=== PATIENT | female | born 1980 | race African-American/Black ===

== ENCOUNTER 2021-02-15 11:21 | Inpatient (IN) | payer BC, OTHER ==
[~2021-02-15] VITALS: Ht 152.4 cm; Wt 73.0 kg
[~2021-02-15 11:21] MED LIST: ATEN50TA PO; BENA20TA10 PO; LISI10TA26 PO
[2021-02-15] MEDS ORDERED: ONDANSETRON HCL 4MG/2ML INJ IV STA (11:52)
[2021-02-15] MEDS ORDERED: SODIUM CHLORIDE 0.9% 1,000 ML IV ONE (12:00)
[2021-02-15 12:16] LABS: BASOPHILS % 0.3 % (0.0-2.0); HEMOGLOBIN. 12.4 g/dL (12.0-16.0); LYMPHOCYTES % 10.5 % (20.0-50.0); MEAN CORPUSCULAR HEMOGLOBIN 30.9 pg (28.0-32.0); MEAN CORPUSCULAR VOLUME 90.1 fL (81.0-99.0); MEAN PLATELET VOLUME 8.8 fl (7.4-10.4); MONOCYTES % 5.7 % (2.0-8.0); NEUTROPHILS % 83.5 % (40.0-76.0); PLATELET 207 x1000/uL (130-400); RED CELL DISTRIBUTION WIDTH 12.5 % (11.6-14.6)
[2021-02-15 12:23] LABS: CHLORIDE 89 mEq/L (98-107)
[2021-02-15 12:26] LABS: PROTHROMBIN TIME 10.9 sec (9.6-11.0)
[2021-02-15 12:32] LABS: HCG SCREEN NEGATIVE
[2021-02-15 12:56] LABS: CLARITY URINE CLEAR (CLEAR); COLOR URINE YELLOW (YELLOW); KETONES URINE TRACE (NEGATIVE); LEUKOCYTE ESTERASE URINE NEGATIVE (NEGATIVE); NITRITE URINE NEGATIVE (NEGATIVE); OCCULT BLOOD URINE NEGATIVE (NEGATIVE); PROTEIN URINE 1+ (NEGATIVE); SPECIFIC GRAVITY URINE 1.013 (1.005-1.030); UROBILINOGEN URINE 0.2 E.U./dL (0.2-1.0)
[2021-02-15] MEDS ORDERED: POTASSIUM CHLORIDE 20MEQ TABLET SR PO ONE (13:00)
[2021-02-15] MEDS ORDERED: KCL 10MEQ/50ML PREMIX 50 ML IV ONE (13:00)
[2021-02-15] MEDS ORDERED: NA PHOS,M-B/NA PHOS,DI-BA ENEMA 118ML PR PRN (17:15)
[2021-02-15] MEDS ORDERED: GUAIFENESIN 200MG/10ML SUGAR FREE UDC PO PRN (17:15)
[2021-02-15] MEDS ORDERED: DIPHENHYDRAMINE 50MG/ML VIAL IV PRN (17:15)
[2021-02-15] MEDS ORDERED: LORAZEPAM 0.5MG TABLET PO PRN (17:15)
[2021-02-15] MEDS ORDERED: DOCUSATE SODIUM 100MG CAPSULE PO PRN (17:15)
[2021-02-15] MEDS ORDERED: MAGNESIUM/ALUMINUM HYDROXIDE/SIMETHICONE 30ML UDC PO PRN (17:15)
[2021-02-15] MEDS ORDERED: CEFTRIAXONE 1 G PREMIX 50 ML IV SCH (17:30)
[2021-02-15] MEDS: ACETAMINOPHEN 325MG TABLET PO PRN (17:53)
[2021-02-15] MEDS: DEXAMETHASONE 4MG TABLET PO SCH (17:53)
[2021-02-15 18:00] LABS: BG BASE EXCESS 4.5 mmol/L (-2.0-2.0); BG CARBOXYHEMOGLOBIN 0.4 % (0.5-1.5); BG DEOXYHEMOGLOBIN 5.3 % (0.0-5.0); BG FRACTION INSPIRED OXYGEN 21; BG HCO3 ACT 27.7 mmol/L (22.0-26.0); BG METHEMOGLOBIN 0.2 % (0.0-1.5); BG OXYGEN SATURATION 94.7 % (92.0-98.5); BG OXYHEMOGLOBIN 94.1 % (94.0-97.0); BG PCO2 36.3 mmHg (35.0-45.0); BG PO2 69.6 mmHg (75.0-100.0); BG SAMPLE SITE LEFT RADIAL; BG TOTAL HEMOGLOBIN 12.6 g/dL (12.0-18.0); BG VENT MODE ROOM AIR
[2021-02-15] MEDS ORDERED: AZITHROMYCIN 500 MG in DEXT 5% WATER 250 ML IV SCH (18:00)
[2021-02-15] MEDS ORDERED: ALBUTEROL 6.7GM HFA INHALER ORI SCH (18:00)
[2021-02-15 19:03] VITALS: BP 123/74
[2021-02-15 20:00] VITALS: BP 139/89
[2021-02-15] MEDS ORDERED: FAMOTIDINE 20MG TABLET PO SCH (21:00)
[2021-02-15] MEDS: ENOXAPARIN 40MG/0.4ML SYR SUBCUT SCH (21:05)
[2021-02-15] MEDS: FAMOTIDINE 20MG TABLET PO SCH (21:05)
[2021-02-15] MEDS: SODIUM CHLORIDE 0.9% 1,000 ML IV SCH (21:06)
[2021-02-16 00:05] VITALS: BP 121/79
[2021-02-16 04:07] VITALS: BP 139/68
[2021-02-16] MEDS: SODIUM CHLORIDE 0.9% 1,000 ML IV SCH ×2 (06:24→21:27)
[2021-02-16 07:24] LABS: CHLORIDE 97 mEq/L (98-107)
[2021-02-16 07:28] LABS: BASOPHILS % 0.5 % (0.0-2.0); HEMATOCRIT. 33.6 % (36.0-48.0); HEMOGLOBIN. 11.5 g/dL (12.0-16.0); LYMPHOCYTES % 23.9 % (20.0-50.0); MEAN CORPUSCULAR HEMOGLOBIN 31.1 pg (28.0-32.0); MEAN CORPUSCULAR VOLUME 90.9 fL (81.0-99.0); MEAN PLATELET VOLUME 9.7 fl (7.4-10.4); MONOCYTES % 7.2 % (2.0-8.0); NEUTROPHILS % 68.4 % (40.0-76.0); PLATELET 190 x1000/uL (130-400); RED CELL DISTRIBUTION WIDTH 12.6 % (11.6-14.6)
[2021-02-16 07:40] LABS: HDL CHOLESTEROL 34 mg/dL (40-59); LDL CHOLESTEROL 67 mg/dL (5-100)
[2021-02-16 07:47] LABS: *AMPHETAMINES SCREEN URINE NEGATIVE (NEGATIVE)
[2021-02-16 07:49] LABS: *BARBITURATES SCREEN URINE NEGATIVE (NEGATIVE); *BENZODIAZEPINES SCREEN URINE NEGATIVE (NEGATIVE); *COCAINE SCREEN URINE NEGATIVE (NEGATIVE); CANNABINOID URINE SCREEN NEGATIVE (NEGATIVE); METHADONE URINE SCREEN NEGATIVE (NEGATIVE); OPIATES URINE SCREEN NEGATIVE (NEGATIVE); PHENCYCLIDINE URINE SCREEN NEGATIVE (NEGATIVE)
[2021-02-16 08:00] VITALS: BP 139/82
[2021-02-16] MEDS: DEXAMETHASONE 4MG TABLET PO SCH (08:17)
[2021-02-16] MEDS: FAMOTIDINE 20MG TABLET PO SCH ×2 (08:17→21:26)
[2021-02-16 12:00] VITALS: BP 164/81
[2021-02-16] MEDS: CLONIDINE 0.1MG TABLET PO PRN (12:07)
[2021-02-16] MEDS: ACETAMINOPHEN 325MG TABLET PO PRN (12:07)
[2021-02-16] MEDS: METRONIDAZOLE 500MG TABLET PO SCH ×2 (13:25→21:26)
[2021-02-16 16:00] VITALS: BP 110/67
[2021-02-16] MEDS: AZITHROMYCIN 500 MG in DEXT 5% WATER 250 ML IV SCH (17:24)
[2021-02-16] MEDS: CEFTRIAXONE 1,000 MG in DEXTROSE 5% WATER 50 ML IV SCH (17:24)
[2021-02-16 20:00] VITALS: BP 129/80
[2021-02-16] MEDS: ENOXAPARIN 40MG/0.4ML SYR SUBCUT SCH (21:27)
[2021-02-17] VITALS: BP 133/85
[2021-02-17 04:00] VITALS: BP 123/68
[2021-02-17] MEDS: ACETAMINOPHEN 650MG/20.3ML UDC GT PRN (04:49)
[2021-02-17] MEDS: METRONIDAZOLE 500MG TABLET PO SCH ×3 (07:28→21:00)
[2021-02-17 07:49] LABS: CHLORIDE 99 mEq/L (98-107)
[2021-02-17 07:50] LABS: BASOPHILS % 0.2 % (0.0-2.0); HEMATOCRIT. 31.7 % (36.0-48.0); HEMOGLOBIN. 10.5 g/dL (12.0-16.0); LYMPHOCYTES % 19.1 % (20.0-50.0); MEAN CORPUSCULAR HEMOGLOBIN 30.2 pg (28.0-32.0); MEAN CORPUSCULAR VOLUME 90.9 fL (81.0-99.0); MEAN PLATELET VOLUME 9.6 fl (7.4-10.4); NEUTROPHILS % 76.7 % (40.0-76.0); PLATELET 189 x1000/uL (130-400); RED BLOOD CELL COUNT 3.49 mill/uL (4.2-5.4); RED CELL DISTRIBUTION WIDTH 12.3 % (11.6-14.6)
[2021-02-17 08:00] VITALS: BP 122/81
[2021-02-17] MEDS: FAMOTIDINE 20MG TABLET PO SCH ×2 (08:47→21:00)
[2021-02-17] MEDS: DEXAMETHASONE 4MG TABLET PO SCH (08:47)
[2021-02-17] MEDS: ACETAMINOPHEN 325MG TABLET PO PRN ×2 (08:47→20:59)
[2021-02-17] MEDS: SODIUM CHLORIDE 0.9% 1,000 ML IV SCH ×2 (10:53→23:39)
[2021-02-17] MEDS ORDERED: POTASSIUM CHLORIDE 20MEQ TABLET SR PO NR (11:00)
[2021-02-17] MEDS: ZINC SULFATE 220 MG ( 50 ) CAPSULE PO SCH (11:06)
[2021-02-17] MEDS: ENOXAPARIN 80MG/0.8ML SYR SUBCUT SCH ×2 (11:24→23:39)
[2021-02-17 12:00] VITALS: BP 140/87
[2021-02-17 16:00] VITALS: BP 145/91
[2021-02-17] MEDS: CEFTRIAXONE 1,000 MG in DEXTROSE 5% WATER 50 ML IV SCH (16:48)
[2021-02-17] MEDS: AZITHROMYCIN 500 MG in DEXT 5% WATER 250 ML IV SCH (17:36)
[2021-02-17 20:00] VITALS: BP 149/85
[2021-02-17] MEDS: ASCORBIC ACID 500 MG TABLET PO SCH (21:00)
[2021-02-18] VITALS (10 sets, daily range): BP systolic 127–181; BP diastolic 74–105
[2021-02-18] MEDS: ACETAMINOPHEN 325MG TABLET PO PRN ×3 (01:03→22:33)
[2021-02-18] MEDS: METRONIDAZOLE 500MG TABLET PO SCH ×3 (05:39→22:32)
[2021-02-18 06:36] LABS: BASOPHILS % 0.3 % (0.0-2.0); HEMATOCRIT. 32.8 % (36.0-48.0); HEMOGLOBIN. 10.9 g/dL (12.0-16.0); LYMPHOCYTES % 19.5 % (20.0-50.0); MEAN CORPUSCULAR HEMOGLOBIN 30.5 pg (28.0-32.0); MEAN CORPUSCULAR VOLUME 91.9 fL (81.0-99.0); MEAN PLATELET VOLUME 9.6 fl (7.4-10.4); MONOCYTES % 3.1 % (2.0-8.0); NEUTROPHILS % 77.1 % (40.0-76.0); PLATELET 217 x1000/uL (130-400); RED BLOOD CELL COUNT 3.57 mill/uL (4.2-5.4); RED CELL DISTRIBUTION WIDTH 12.6 % (11.6-14.6)
[2021-02-18 06:37] LABS: CHLORIDE 102 mEq/L (98-107)
[2021-02-18] MEDS: ZINC SULFATE 220 MG ( 50 ) CAPSULE PO SCH (08:50)
[2021-02-18] MEDS: FAMOTIDINE 20MG TABLET PO SCH ×2 (08:50→20:38)
[2021-02-18] MEDS: ASCORBIC ACID 500 MG TABLET PO SCH ×2 (08:50→20:38)
[2021-02-18] MEDS: DEXAMETHASONE 10 MG/ML VIAL IV SCH (08:50)
[2021-02-18] MEDS ORDERED: POTASSIUM CHLORIDE 20MEQ TABLET SR PO NR (10:45)
[2021-02-18] MEDS: ENOXAPARIN 80MG/0.8ML SYR SUBCUT SCH ×2 (12:11→22:32)
[2021-02-18] MEDS: AMLODIPINE 5MG TABLET PO SCH (12:27)
[2021-02-18 12:30] LABS: BG BASE EXCESS 2.3 mmol/L (-2.0-2.0); BG CARBOXYHEMOGLOBIN 0.4 % (0.5-1.5); BG DEOXYHEMOGLOBIN 7.7 % (0.0-5.0); BG FRACTION INSPIRED OXYGEN 32; BG HCO3 ACT 25.3 mmol/L (22.0-26.0); BG OXYGEN SATURATION 92.3 % (92.0-98.5); BG OXYHEMOGLOBIN 91.9 % (94.0-97.0); BG PCO2 33.6 mmHg (35.0-45.0); BG PH 7.494 (7.350-7.450); BG PO2 58.6 mmHg (75.0-100.0); BG SAMPLE SITE LEFT RADIAL; BG TOTAL HEMOGLOBIN 11.8 g/dL (12.0-18.0); BG VENT MODE NASAL CANNULA
[2021-02-18] MEDS: SODIUM CHLORIDE 0.9% 1,000 ML IV SCH (13:51)
[2021-02-18] MEDS ORDERED: IVERMECTIN 3 MG TABLET PO NR (15:45)
[2021-02-18] MEDS: CEFTRIAXONE 1,000 MG in DEXTROSE 5% WATER 50 ML IV SCH (16:18)
[2021-02-18] MEDS: AZITHROMYCIN 500 MG in DEXT 5% WATER 250 ML IV SCH (17:06)
[2021-02-18] MEDS: ALBUTEROL 6.7GM HFA INHALER ORI SCH (17:32)
[2021-02-18] MEDS: CLONIDINE 0.1MG TABLET PO PRN (22:46)
[2021-02-19] VITALS (18 sets, daily range): BP systolic 107–166; BP diastolic 20–95
[2021-02-19] MEDS: ALBUTEROL 6.7GM HFA INHALER ORI SCH ×5 (00:33→22:46)
[2021-02-19] MEDS: SODIUM CHLORIDE 0.9% 1,000 ML IV SCH ×2 (05:07→14:07)
[2021-02-19] MEDS: METRONIDAZOLE 500MG TABLET PO SCH ×3 (05:07→22:47)
[2021-02-19] MEDS: HYDROCODONE/ACETAMINOPHEN 5/325MG TABLET PO PRN ×2 (05:11→20:16)
[2021-02-19] MEDS: ONDANSETRON HCL 4MG/2ML INJ IV PRN ×2 (05:30→20:16)
[2021-02-19 05:38] LABS: CHLORIDE 102 mEq/L (98-107)
[2021-02-19 05:44] LABS: BASOPHILS % 0.2 % (0.0-2.0); HEMATOCRIT. 32.8 % (36.0-48.0); HEMOGLOBIN. 10.7 g/dL (12.0-16.0); LYMPHOCYTES % 15.6 % (20.0-50.0); MEAN CORPUSCULAR VOLUME 91.7 fL (81.0-99.0); MEAN PLATELET VOLUME 9.6 fl (7.4-10.4); MONOCYTES % 3.9 % (2.0-8.0); NEUTROPHILS % 80.3 % (40.0-76.0); PLATELET 283 x1000/uL (130-400); RED BLOOD CELL COUNT 3.58 mill/uL (4.2-5.4); RED CELL DISTRIBUTION WIDTH 12.9 % (11.6-14.6)
[2021-02-19] MEDS: AMLODIPINE 5MG TABLET PO SCH (07:57)
[2021-02-19] MEDS: DEXAMETHASONE 10 MG/ML VIAL IV SCH (07:58)
[2021-02-19] MEDS: FAMOTIDINE 20MG TABLET PO SCH ×2 (07:58→20:16)
[2021-02-19] MEDS: ZINC SULFATE 220 MG ( 50 ) CAPSULE PO SCH (07:58)
[2021-02-19] MEDS: ASCORBIC ACID 500 MG TABLET PO SCH ×2 (07:58→20:16)
[2021-02-19] MEDS: ACETAMINOPHEN 325MG TABLET PO PRN ×2 (08:00→15:55)
[2021-02-19 08:52] LABS: BG BASE EXCESS 0.6 mmol/L (-2.0-2.0); BG CARBOXYHEMOGLOBIN 0.3 % (0.5-1.5); BG DEOXYHEMOGLOBIN 5.5 % (0.0-5.0); BG HCO3 ACT 24.2 mmol/L (22.0-26.0); BG METHEMOGLOBIN 0.3 % (0.0-1.5); BG OXYGEN SATURATION 94.5 % (92.0-98.5); BG OXYHEMOGLOBIN 93.9 % (94.0-97.0); BG PCO2 35.2 mmHg (35.0-45.0); BG PH 7.455 (7.350-7.450); BG PO2 71.9 mmHg (75.0-100.0); BG SAMPLE SITE RIGHT RADIAL; BG TOTAL HEMOGLOBIN 10.8 g/dL (12.0-18.0); BG VENT MODE NASAL CANNULA
[2021-02-19] MEDS: ENOXAPARIN 80MG/0.8ML SYR SUBCUT SCH ×2 (11:38→22:47)
[2021-02-19] MEDS: ACETAMINOPHEN 650MG/20.3ML UDC GT PRN (15:57)
[2021-02-19] MEDS: CEFTRIAXONE 1,000 MG in DEXTROSE 5% WATER 50 ML IV SCH (16:03)
[2021-02-19] MEDS: AZITHROMYCIN 500 MG in DEXT 5% WATER 250 ML IV SCH (17:46)
[2021-02-20] VITALS (7 sets, daily range): BP systolic 136–156; BP diastolic 83–96
[2021-02-20] MEDS: ACETAMINOPHEN 325MG TABLET PO PRN (04:09)
[2021-02-20 05:06] LABS: CHLORIDE 102 mEq/L (98-107)
[2021-02-20] MEDS: METRONIDAZOLE 500MG TABLET PO SCH (05:50)
[2021-02-20] MEDS: SODIUM CHLORIDE 0.9% 1,000 ML IV SCH (05:50)
[2021-02-20] MEDS: ALBUTEROL 6.7GM HFA INHALER ORI SCH ×3 (05:51→17:40)
[2021-02-20 06:24] LABS: BASOPHILS % 0.2 % (0.0-2.0); HEMATOCRIT. 31.2 % (36.0-48.0); LYMPHOCYTES % 11.2 % (20.0-50.0); MEAN CORPUSCULAR HEMOGLOBIN 29.6 pg (28.0-32.0); MEAN PLATELET VOLUME 9.1 fl (7.4-10.4); MONOCYTES % 4.6 % (2.0-8.0); PLATELET 397 x1000/uL (130-400); RED BLOOD CELL COUNT 3.39 mill/uL (4.2-5.4); RED CELL DISTRIBUTION WIDTH 13.1 % (11.6-14.6)
[2021-02-20] MEDS: DEXAMETHASONE 10 MG/ML VIAL IV SCH (08:53)
[2021-02-20] MEDS: ZINC SULFATE 220 MG ( 50 ) CAPSULE PO SCH (08:54)
[2021-02-20] MEDS: FAMOTIDINE 20MG TABLET PO SCH ×2 (08:54→20:55)
[2021-02-20] MEDS: ASCORBIC ACID 500 MG TABLET PO SCH ×2 (08:54→20:55)
[2021-02-20] MEDS: AMLODIPINE 5MG TABLET PO SCH (08:54)
[2021-02-20 10:18] LABS: BG BASE EXCESS 3.2 mmol/L (-2.0-2.0); BG CARBOXYHEMOGLOBIN 0.4 % (0.5-1.5); BG DEOXYHEMOGLOBIN 10.7 % (0.0-5.0); BG FRACTION INSPIRED OXYGEN 36; BG HCO3 ACT 26.3 mmol/L (22.0-26.0); BG METHEMOGLOBIN 0.2 % (0.0-1.5); BG OXYGEN SATURATION 89.2 % (92.0-98.5); BG OXYHEMOGLOBIN 88.7 % (94.0-97.0); BG PCO2 34.8 mmHg (35.0-45.0); BG PH 7.497 (7.350-7.450); BG PO2 54.4 mmHg (75.0-100.0); BG SAMPLE SITE LEFT RADIAL; BG TOTAL HEMOGLOBIN 10.9 g/dL (12.0-18.0); BG VENT MODE NASAL CANNULA
[2021-02-20] MEDS ORDERED: POTASSIUM CHLORIDE 20MEQ TABLET SR PO NR (11:00)
[2021-02-20] MEDS: ENOXAPARIN 80MG/0.8ML SYR SUBCUT SCH (11:19)
[2021-02-20] MEDS ORDERED: IVERMECTIN 3 MG TABLET PO NR (15:45)
[2021-02-20] MEDS ORDERED: METOCLOPRAMIDE HCL 10MG/2ML VIAL IV PRN (16:00)
[2021-02-20] MEDS: ACETAMINOPHEN 650MG/20.3ML UDC GT PRN ×2 (16:25→20:55)
[2021-02-21] VITALS: BP 139/87
[2021-02-21] MEDS: ALBUTEROL 6.7GM HFA INHALER ORI SCH ×4 (00:42→17:45)
[2021-02-21 04:00] VITALS: BP 140/90
[2021-02-21] MEDS: ACETAMINOPHEN 325MG TABLET PO PRN ×4 (04:58→20:11)
[2021-02-21 06:42] LABS: BASOPHILS % 0.1 % (0.0-2.0); HEMOGLOBIN. 9.9 g/dL (12.0-16.0); LYMPHOCYTES % 13.7 % (20.0-50.0); MEAN CORPUSCULAR VOLUME 90.4 fL (81.0-99.0); MEAN PLATELET VOLUME 8.7 fl (7.4-10.4); MONOCYTES % 5.2 % (2.0-8.0); PLATELET 511 x1000/uL (130-400); RED CELL DISTRIBUTION WIDTH 12.8 % (11.6-14.6)
[2021-02-21 06:47] LABS: CHLORIDE 102 mEq/L (98-107)
[2021-02-21 08:00] VITALS: BP 147/85
[2021-02-21] MEDS: ENOXAPARIN 40MG/0.4ML SYR SUBCUT SCH (09:17)
[2021-02-21] MEDS: ASCORBIC ACID 500 MG TABLET PO SCH ×2 (09:17→20:10)
[2021-02-21] MEDS: ZINC SULFATE 220 MG ( 50 ) CAPSULE PO SCH (09:17)
[2021-02-21] MEDS: FAMOTIDINE 20MG TABLET PO SCH ×2 (09:17→20:10)
[2021-02-21] MEDS: MULTIVITAMINS,THER W-MINERALS TABLET PO SCH (09:18)
[2021-02-21] MEDS: DEXAMETHASONE 10 MG/ML VIAL IV SCH (09:19)
[2021-02-21] MEDS: AMLODIPINE 5MG TABLET PO SCH (09:28)
[2021-02-21 09:55] LABS: BG BASE EXCESS 3.2 mmol/L (-2.0-2.0); BG CARBOXYHEMOGLOBIN 0.4 % (0.5-1.5); BG DEOXYHEMOGLOBIN 10.7 % (0.0-5.0); BG FRACTION INSPIRED OXYGEN 50; BG HCO3 ACT 26.6 mmol/L (22.0-26.0); BG METHEMOGLOBIN 0.2 % (0.0-1.5); BG OXYGEN SATURATION 89.2 % (92.0-98.5); BG OXYHEMOGLOBIN 88.7 % (94.0-97.0); BG PH 7.486 (7.350-7.450); BG PO2 53.9 mmHg (75.0-100.0); BG SAMPLE SITE LEFT RADIAL; BG TOTAL HEMOGLOBIN 10.8 g/dL (12.0-18.0); BG VENT MODE NASAL CANNULA
[2021-02-21 12:00] VITALS: BP 152/95
[2021-02-21] MEDS ORDERED: POTASSIUM CHLORIDE 20MEQ TABLET SR PO SCH (12:00)
[2021-02-21 16:00] VITALS: BP 135/82
[2021-02-21 20:00] VITALS: BP 145/91
[2021-02-22] VITALS: BP 152/97
[2021-02-22] MEDS: ALBUTEROL 6.7GM HFA INHALER ORI SCH ×5 (00:14→23:43)
[2021-02-22 04:00] VITALS: BP 153/94
[2021-02-22 06:42] LABS: CHLORIDE 100 mEq/L (98-107)
[2021-02-22 07:00] LABS: BASOPHILS % 0.1 % (0.0-2.0); EOSINOPHILS % 0.2 % (0.0-5.0); HEMATOCRIT. 30.1 % (36.0-48.0); HEMOGLOBIN. 10.5 g/dL (12.0-16.0); LYMPHOCYTES % 9.8 % (20.0-50.0); MEAN CORPUSCULAR HEMOGLOBIN 31.4 pg (28.0-32.0); MEAN PLATELET VOLUME 8.4 fl (7.4-10.4); MONOCYTES % 5.4 % (2.0-8.0); NEUTROPHILS % 84.5 % (40.0-76.0); PLATELET 698 x1000/uL (130-400); RED BLOOD CELL COUNT 3.35 mill/uL (4.2-5.4); RED CELL DISTRIBUTION WIDTH 12.6 % (11.6-14.6)
[2021-02-22 08:00] VITALS: BP 151/88
[2021-02-22] MEDS: DEXAMETHASONE 10 MG/ML VIAL IV SCH (08:49)
[2021-02-22] MEDS: ZINC SULFATE 220 MG ( 50 ) CAPSULE PO SCH (08:50)
[2021-02-22] MEDS: POTASSIUM CHLORIDE 20MEQ TABLET SR PO SCH (08:50)
[2021-02-22] MEDS: MULTIVITAMINS,THER W-MINERALS TABLET PO SCH (08:50)
[2021-02-22] MEDS: AMLODIPINE 5MG TABLET PO SCH (08:50)
[2021-02-22] MEDS: ASCORBIC ACID 500 MG TABLET PO SCH ×2 (08:50→21:47)
[2021-02-22] MEDS: FAMOTIDINE 20MG TABLET PO SCH ×2 (08:50→21:47)
[2021-02-22] MEDS: ENOXAPARIN 40MG/0.4ML SYR SUBCUT SCH (08:51)
[2021-02-22 10:25] LABS: BG BASE EXCESS 1.9 mmol/L (-2.0-2.0); BG CARBOXYHEMOGLOBIN 0.3 % (0.5-1.5); BG FRACTION INSPIRED OXYGEN 52; BG HCO3 ACT 25.1 mmol/L (22.0-26.0); BG METHEMOGLOBIN 0.2 % (0.0-1.5); BG OXYHEMOGLOBIN 93.5 % (94.0-97.0); BG PCO2 34.3 mmHg (35.0-45.0); BG PH 7.482 (7.350-7.450); BG PO2 68.7 mmHg (75.0-100.0); BG TOTAL HEMOGLOBIN 10.9 g/dL (12.0-18.0); BG VENT MODE NASAL CANNULA
[2021-02-22 11:42] VITALS: BP 134/92
[2021-02-22 16:00] VITALS: BP 105/55
[2021-02-22 20:00] VITALS: BP 127/80
[2021-02-23 00:18] VITALS: BP 138/83
[2021-02-23 04:39] VITALS: BP 128/82
[2021-02-23] MEDS: ALBUTEROL 6.7GM HFA INHALER ORI SCH ×3 (05:07→18:05)
[2021-02-23 07:10] LABS: HEMATOCRIT. 30.5 % (36.0-48.0); MEAN CORPUSCULAR HEMOGLOBIN 29.3 pg (28.0-32.0); MEAN CORPUSCULAR VOLUME 89.6 fL (81.0-99.0); MEAN PLATELET VOLUME 8.1 fl (7.4-10.4); PLATELET 814 x1000/uL (130-400); RED BLOOD CELL COUNT 3.41 mill/uL (4.2-5.4); RED CELL DISTRIBUTION WIDTH 12.9 % (11.6-14.6)
[2021-02-23 07:35] LABS: CHLORIDE 100 mEq/L (98-107)
[2021-02-23 08:00] VITALS: BP 107/65
[2021-02-23] MEDS: AMLODIPINE 5MG TABLET PO SCH (08:01)
[2021-02-23] MEDS: MULTIVITAMINS,THER W-MINERALS TABLET PO SCH (08:27)
[2021-02-23] MEDS: ASCORBIC ACID 500 MG TABLET PO SCH ×2 (08:27→19:35)
[2021-02-23] MEDS: FAMOTIDINE 20MG TABLET PO SCH ×2 (08:27→19:35)
[2021-02-23] MEDS: ZINC SULFATE 220 MG ( 50 ) CAPSULE PO SCH (08:27)
[2021-02-23] MEDS: POTASSIUM CHLORIDE 20MEQ TABLET SR PO SCH (08:27)
[2021-02-23] MEDS: ENOXAPARIN 40MG/0.4ML SYR SUBCUT SCH (08:29)
[2021-02-23] MEDS: DEXAMETHASONE 10 MG/ML VIAL IV SCH (08:29)
[2021-02-23 10:45] LABS: BG BASE EXCESS 2.6 mmol/L (-2.0-2.0); BG CARBOXYHEMOGLOBIN 0.1 % (0.5-1.5); BG DEOXYHEMOGLOBIN 8.2 % (0.0-5.0); BG FRACTION INSPIRED OXYGEN 40; BG HCO3 ACT 25.9 mmol/L (22.0-26.0); BG METHEMOGLOBIN 0.3 % (0.0-1.5); BG OXYGEN SATURATION 91.8 % (92.0-98.5); BG OXYHEMOGLOBIN 91.4 % (94.0-97.0); BG PCO2 35.5 mmHg (35.0-45.0); BG PH 7.481 (7.350-7.450); BG PO2 61.8 mmHg (75.0-100.0); BG SAMPLE SITE RIGHT RADIAL; BG TOTAL HEMOGLOBIN 12.7 g/dL (12.0-18.0); BG VENT MODE NASAL CANNULA
[2021-02-23 12:35] VITALS: BP 142/84
[2021-02-23 14:58] LABS: PLATELET ESTIMATE MARKEDLY INCREASED
[2021-02-23 16:00] VITALS: BP 124/53
[2021-02-23] MEDS: METHYLPREDNISOLONE SOD SUCC 40 MG/ML VIAL IV SCH (17:00)
[2021-02-24] VITALS: BP 128/79
[2021-02-24] MEDS: ALBUTEROL 6.7GM HFA INHALER ORI SCH ×4 (00:58→17:57)
[2021-02-24] MEDS: METHYLPREDNISOLONE SOD SUCC 40 MG/ML VIAL IV SCH ×3 (00:58→16:55)
[2021-02-24 04:00] VITALS: BP 115/61
[2021-02-24 07:11] LABS: CHLORIDE 101 mEq/L (98-107); HEMATOCRIT. 27.4 % (36.0-48.0); HEMOGLOBIN. 9.4 g/dL (12.0-16.0); MEAN CORPUSCULAR HEMOGLOBIN 30.7 pg (28.0-32.0); MEAN CORPUSCULAR VOLUME 89.8 fL (81.0-99.0); MEAN PLATELET VOLUME 8.2 fl (7.4-10.4); PLATELET 865 x1000/uL (130-400); RED BLOOD CELL COUNT 3.05 mill/uL (4.2-5.4); RED CELL DISTRIBUTION WIDTH 13.1 % (11.6-14.6)
[2021-02-24 08:00] VITALS: BP 126/60
[2021-02-24] MEDS: POTASSIUM CHLORIDE 20MEQ TABLET SR PO SCH (08:18)
[2021-02-24] MEDS: ENOXAPARIN 40MG/0.4ML SYR SUBCUT SCH (08:18)
[2021-02-24] MEDS: MULTIVITAMINS,THER W-MINERALS TABLET PO SCH (08:18)
[2021-02-24] MEDS: ZINC SULFATE 220 MG ( 50 ) CAPSULE PO SCH (08:18)
[2021-02-24] MEDS: AMLODIPINE 5MG TABLET PO SCH (08:19)
[2021-02-24] MEDS: ASCORBIC ACID 500 MG TABLET PO SCH ×2 (08:19→20:24)
[2021-02-24] MEDS: FAMOTIDINE 20MG TABLET PO SCH ×2 (08:20→20:24)
[2021-02-24 10:11] LABS: BG CARBOXYHEMOGLOBIN 0.3 % (0.5-1.5); BG DEOXYHEMOGLOBIN 8.7 % (0.0-5.0); BG FRACTION INSPIRED OXYGEN 36; BG HCO3 ACT 24.1 mmol/L (22.0-26.0); BG METHEMOGLOBIN 0.2 % (0.0-1.5); BG OXYGEN SATURATION 91.3 % (92.0-98.5); BG OXYHEMOGLOBIN 90.8 % (94.0-97.0); BG PH 7.482 (7.350-7.450); BG PO2 60.8 mmHg (75.0-100.0); BG SAMPLE SITE LEFT RADIAL; BG TOTAL HEMOGLOBIN 10.4 g/dL (12.0-18.0); BG TOTAL RESPIRATORY RATE 22 b/min; BG VENT MODE NASAL CANNULA
[2021-02-24 12:00] VITALS: BP 126/80
[2021-02-24 16:00] VITALS: BP 129/75
[2021-02-24 19:56] VITALS: BP 144/90
[2021-02-25] VITALS: BP 134/80
[2021-02-25] MEDS: METHYLPREDNISOLONE SOD SUCC 40 MG/ML VIAL IV SCH ×3 (00:15→17:49)
[2021-02-25] MEDS: ALBUTEROL 6.7GM HFA INHALER ORI SCH ×4 (00:15→17:49)
[2021-02-25 04:00] VITALS: BP 127/75
[2021-02-25 06:03] LABS: HEMATOCRIT. 28.9 % (36.0-48.0); HEMOGLOBIN. 9.5 g/dL (12.0-16.0); MEAN CORPUSCULAR HEMOGLOBIN 30.1 pg (28.0-32.0); MEAN CORPUSCULAR VOLUME 91.6 fL (81.0-99.0); MEAN PLATELET VOLUME 8.3 fl (7.4-10.4); RED BLOOD CELL COUNT 3.16 mill/uL (4.2-5.4); RED CELL DISTRIBUTION WIDTH 13.1 % (11.6-14.6)
[2021-02-25 06:10] LABS: CHLORIDE 102 mEq/L (98-107)
[2021-02-25 06:30] LABS: PLATELET 1019 x1000/uL (130-400)
[2021-02-25 08:00] VITALS: BP 132/77
[2021-02-25] MEDS: POTASSIUM CHLORIDE 20MEQ TABLET SR PO SCH (08:46)
[2021-02-25] MEDS: ZINC SULFATE 220 MG ( 50 ) CAPSULE PO SCH (08:46)
[2021-02-25] MEDS: ASCORBIC ACID 500 MG TABLET PO SCH ×2 (08:46→20:52)
[2021-02-25] MEDS: FAMOTIDINE 20MG TABLET PO SCH ×2 (08:46→20:52)
[2021-02-25] MEDS: ENOXAPARIN 40MG/0.4ML SYR SUBCUT SCH (08:46)
[2021-02-25] MEDS: MULTIVITAMINS,THER W-MINERALS TABLET PO SCH (08:46)
[2021-02-25] MEDS: AMLODIPINE 5MG TABLET PO SCH (08:46)
[2021-02-25 09:13] LABS: PLATELET ESTIMATE MARKEDLY INCREASED
[2021-02-25 10:27] LABS: BG BASE EXCESS 2.6 mmol/L (-2.0-2.0); BG CARBOXYHEMOGLOBIN 0.2 % (0.5-1.5); BG DEOXYHEMOGLOBIN 6.4 % (0.0-5.0); BG FRACTION INSPIRED OXYGEN 32; BG HCO3 ACT 25.8 mmol/L (22.0-26.0); BG METHEMOGLOBIN 0.2 % (0.0-1.5); BG OXYGEN SATURATION 93.6 % (92.0-98.5); BG OXYHEMOGLOBIN 93.2 % (94.0-97.0); BG PCO2 35.1 mmHg (35.0-45.0); BG PH 7.485 (7.350-7.450); BG SAMPLE SITE RIGHT RADIAL; BG TOTAL HEMOGLOBIN 10.7 g/dL (12.0-18.0); BG VENT MODE NASAL CANNULA
[2021-02-25 12:00] VITALS: BP 136/72
[2021-02-25] MEDS: ASPIRIN 81MG TABLET PO SCH (13:45)
[2021-02-25 14:04] LABS: PLATELET ESTIMATE MARKEDLY INCREASED
[2021-02-25 16:00] VITALS: BP 139/73
[2021-02-25 20:00] VITALS: BP 146/89
[2021-02-26] VITALS: BP 137/84
[2021-02-26] MEDS: ALBUTEROL 6.7GM HFA INHALER ORI SCH ×4 (00:44→17:07)
[2021-02-26] MEDS: METHYLPREDNISOLONE SOD SUCC 40 MG/ML VIAL IV SCH ×2 (00:45→08:48)
[2021-02-26 04:00] VITALS: BP 133/80
[2021-02-26 06:44] LABS: HEMATOCRIT. 31.5 % (36.0-48.0); HEMOGLOBIN. 10.2 g/dL (12.0-16.0); MEAN CORPUSCULAR HEMOGLOBIN 29.9 pg (28.0-32.0); RED BLOOD CELL COUNT 3.42 mill/uL (4.2-5.4); RED CELL DISTRIBUTION WIDTH 13.1 % (11.6-14.6)
[2021-02-26 07:45] LABS: PLATELET 1134 x1000/uL (130-400)
[2021-02-26 07:53] LABS: CHLORIDE 100 mEq/L (98-107)
[2021-02-26 08:00] VITALS: BP 121/72
[2021-02-26] MEDS: AMLODIPINE 5MG TABLET PO SCH (08:49)
[2021-02-26] MEDS: ASCORBIC ACID 500 MG TABLET PO SCH ×2 (08:49→21:43)
[2021-02-26] MEDS: POTASSIUM CHLORIDE 20MEQ TABLET SR PO SCH (08:49)
[2021-02-26] MEDS: MULTIVITAMINS,THER W-MINERALS TABLET PO SCH (08:49)
[2021-02-26] MEDS: FAMOTIDINE 20MG TABLET PO SCH ×3 (09:00→21:43)
[2021-02-26] MEDS: ASPIRIN 81MG TABLET PO SCH (09:00)
[2021-02-26] MEDS: ZINC SULFATE 220 MG ( 50 ) CAPSULE PO SCH (09:04)
[2021-02-26 12:00] VITALS: BP 147/89
[2021-02-26 13:37] LABS: PLATELET ESTIMATE MARKEDLY INCREASED
[2021-02-26 16:00] VITALS: BP 118/80
[2021-02-26 20:00] VITALS: BP 133/87
[2021-02-27] VITALS: BP 130/81
[2021-02-27] MEDS: ALBUTEROL 6.7GM HFA INHALER ORI SCH ×5 (00:23→23:11)
[2021-02-27 04:00] VITALS: BP 106/75
[2021-02-27 06:50] LABS: HEMATOCRIT. 30.6 % (36.0-48.0); HEMOGLOBIN. 9.7 g/dL (12.0-16.0); MEAN CORPUSCULAR HEMOGLOBIN 29.4 pg (28.0-32.0); MEAN CORPUSCULAR VOLUME 92.6 fL (81.0-99.0); RED BLOOD CELL COUNT 3.31 mill/uL (4.2-5.4); RED CELL DISTRIBUTION WIDTH 13.5 % (11.6-14.6)
[2021-02-27 07:03] LABS: CHLORIDE 101 mEq/L (98-107)
[2021-02-27 07:54] LABS: PLATELET 1130 x1000/uL (130-400)
[2021-02-27 08:00] VITALS: BP 111/70
[2021-02-27] MEDS: ASCORBIC ACID 500 MG TABLET PO SCH ×2 (08:35→20:24)
[2021-02-27] MEDS: ASPIRIN 81MG TABLET PO SCH (08:35)
[2021-02-27] MEDS: POTASSIUM CHLORIDE 20MEQ TABLET SR PO SCH (08:35)
[2021-02-27] MEDS: MULTIVITAMINS,THER W-MINERALS TABLET PO SCH (08:35)
[2021-02-27] MEDS: ZINC SULFATE 220 MG ( 50 ) CAPSULE PO SCH (08:35)
[2021-02-27] MEDS: AMLODIPINE 5MG TABLET PO SCH (08:35)
[2021-02-27] MEDS: FAMOTIDINE 20MG TABLET PO SCH ×2 (08:35→20:24)
[2021-02-27] MEDS ORDERED: METHYLPREDNISOLONE SOD SUCC 40 MG/ML VIAL IV SCH (09:00)
[2021-02-27 12:00] VITALS: BP 109/71
[2021-02-27 16:00] VITALS: BP 113/71
[2021-02-27 20:36] VITALS: BP 100/59
[2021-02-28] VITALS (7 sets, daily range): BP systolic 95–135; BP diastolic 60–85
[2021-02-28] MEDS: ALBUTEROL 6.7GM HFA INHALER ORI SCH ×3 (06:05→20:42)
[2021-02-28 07:06] LABS: HEMATOCRIT. 30.7 % (36.0-48.0); HEMOGLOBIN. 10.1 g/dL (12.0-16.0); MEAN CORPUSCULAR HEMOGLOBIN 30.7 pg (28.0-32.0); MEAN CORPUSCULAR VOLUME 93.4 fL (81.0-99.0); MEAN PLATELET VOLUME 7.9 fl (7.4-10.4); PLATELET 945 x1000/uL (130-400); RED BLOOD CELL COUNT 3.29 mill/uL (4.2-5.4); RED CELL DISTRIBUTION WIDTH 13.6 % (11.6-14.6)
[2021-02-28 07:27] LABS: CHLORIDE 102 mEq/L (98-107)
[2021-02-28] MEDS: MULTIVITAMINS,THER W-MINERALS TABLET PO SCH (08:33)
[2021-02-28] MEDS: POTASSIUM CHLORIDE 20MEQ TABLET SR PO SCH (08:33)
[2021-02-28] MEDS: FAMOTIDINE 20MG TABLET PO SCH ×2 (08:33→20:41)
[2021-02-28] MEDS: ASCORBIC ACID 500 MG TABLET PO SCH ×2 (08:33→20:41)
[2021-02-28] MEDS: AMLODIPINE 5MG TABLET PO SCH (08:34)
[2021-02-28] MEDS: ASPIRIN 81MG TABLET PO SCH (08:36)
[2021-02-28] MEDS: ZINC SULFATE 220 MG ( 50 ) CAPSULE PO SCH (08:41)
[2021-02-28] MEDS ORDERED: IPRA3AMP9 NEB (13:30)
[2021-02-28] MEDS ORDERED: AMLO5TAB4 MT (13:30)
[2021-02-28 13:35] LABS: NUCLEATED RED BLOOD CELLS 3 /100 WBC; PLATELET ESTIMATE MARKEDLY INCREASED
[2021-02-28 14:02] LABS: NUCLEATED RED BLOOD CELLS 1 /100 WBC
[2021-02-28 14:03] LABS: PLATELET ESTIMATE MARKEDLY INCREASED
== END 2021-02-28 22:15 | disposition home or self-care (01) | DRG 871 ==
LOC: ER 11:21 → 7WST 15:36 → EDBEDREQ 15:38 → SUPCPDRO 17:12 → ENRESERV 17:16 → MICUSO 02-18 19:00 → 7WST 02-19 06:45 → 5WST 02-28 17:34
PROVIDERS: ADMIT Internal Medicine; ATTEND Internal Medicine
DX: A41.89 Other specified sepsis (principal); U07.1 COVID-19; J12.82 Pneumonia due to coronavirus disease 2019; E87.1 Hypo-osmolality and hyponatremia; B17.9 Acute viral hepatitis, unspecified; A08.39 Other viral enteritis; I10 Essential (primary) hypertension; R06.03 Acute respiratory distress; D72.810 Lymphocytopenia; E87.6 Hypokalemia; D47.3 Essential (hemorrhagic) thrombocythemia; E66.9 Obesity, unspecified; Z79.899 Other long term (current) drug therapy; Z90.49 Acquired absence of other specified parts of digestive tract; Z68.31 Body mass index [BMI] 31.0-31.9, adult
CPT/HCPCS: 36415; 36600; 71045; 74176; 76700; 80048; 80053; 80061; 80076; 80305; 81003; 82270; 82375; 82728; 82805; 83605; 83615; 83735; 84145; 84439; 84443; 84484; 84703; 85025; 85379; 86141; 87015; 87045; 87426; 87427; 87449; 87493; 89055; 93005; 93970; 94618; 99285; C1893; J0456; J0696; J1100; J1200; J1650; J2405; J2920; J3480; J7030; J7060; J8540; U0003; U0005